=== PATIENT | female | born 1990 | race Caucasian/White ===

== ENCOUNTER 2018-02-10 02:19 | Emergency (ER) | payer BC ==
[2018-02-10] MEDS ORDERED: HYDROmorphone 2 MG/ML SDV IM ONE ×3 (02:37→03:21)
[2018-02-10] MEDS ORDERED: Ondansetron 4 MG/2 ML SDV IM ONE (02:37)
[2018-02-10 02:38] VITALS: BP 136/68
--- NOTE | 2018-02-10 02:45 | EDM.PDOC ---
ED HPI GENERAL MEDICAL PROBLEM - General Chief Complaint: Flank Pain Stated Complaint: POSSIBLE KIDNEY STONE Time Seen by Provider: 02/10/18 02:25 Source of Information: Reports: Patient, Family, Old Records History Limitations: Reports: No Limitations - History of Present Illness INITIAL COMMENTS - FREE TEXT/NARRATIVE: Kena is a 32 week gestation patient who comes to [facility] ED with L flank pain since yesterday evening. Pain is colicky, associated with nausea and vomiting, and seems to be getting worse. She suspects a kidney stone, as she has had them in the past. An abdominal CT scan in 2013 detected nephrolithiasis involving both kidneys at that time. - Related Data Allergies Allergy/AdvReac Type Severity Reaction Status Date / Time No Known Allergies Allergy Verified 02/10/18 02:59 Home Meds: Home Meds Levothyroxine Sodium 0.5 tab PO DAILY 02/10/18 [History] Prenat Vit Comb.10/Iron/Fa/Dha [Vitafol-OB + DHA] 1 tab PO DAILY 02/10/18 [ History] Past Medical History Genitourinary History: Reports: Renal Calculus ED ROS GENERAL - Review of Systems Review Of Systems: ROS reveals no pertinent complaints other than HPI. ED EXAM, RENAL/ - Physical Exam Exam: See Below Exam Limited By: No Limitations General Appearance: Alert, WD/WN, Moderate Distress Head: Normocephalic Neck: Normal Inspection, Supple, Non-Tender, Full Range of Motion Respiratory/Chest: Lungs Clear, Normal Breath Sounds, Chest Non-Tender Cardiovascular: Normal Peripheral Pulses, Regular Rate, Rhythm, No Murmur GI/Abdominal: Normal Bowel Sounds, Soft, Non-Tender, No Distention, No Mass, Other (fundus at 33 cm and nontender) (Female) Exam: Deferred, Enlarged Uterus, Heart Tones (145) Back Exam: CVA Tenderness (L) Extremities: Normal Inspection Neurological: Alert, Oriented, CN II-XII Intact, No Motor/Sensory Deficits Psychiatric: Normal Affect, Normal Mood Skin Exam: Warm, Dry, Intact, Normal Color, No Rash Lymphatic: No Adenopathy Course - Vital Signs Text/Narrative:: The UA noted hematuria with 100 RBC per HPFI administered Dilaudid 2 mg IM x2 and Zofran 4 mg IM for pain managment in the ED. Patient was clinically improved at time of discharge. Last Recorded V/S: Last Vital Signs Temp 36.4 C 02/10/18 02:34 Pulse 88 02/10/18 02:34 Resp 18 02/10/18 02:34 BP 136/68 02/10/18 02:34 Pulse Ox 100 02/10/18 02:34 - Orders/Labs/Meds Labs: Laboratory Tests 02/10/18 Range/Units 02:30 Urine Color Yellow (YELLOW) Urine Appearance Cloudy (CLEAR) Urine pH 6.0 (5.0-6.5) Ur Specific [place] 1.020 (1.010-1.025) Urine Protein Negative (NEGATIVE) mg/dL Urine Glucose (UA) Normal (NEGATIVE) mg/dL Urine Ketones Negative (NEGATIVE) mg/dL Urine Occult Blood Large H (NEGATIVE) Urine Nitrite Negative (NEGATIVE) Urine Bilirubin Negative (NEGATIVE) Urine Urobilinogen Normal (NEGATIVE) mg/dL Ur Leukocyte Esterase Negative (NEGATIVE) Urine RBC >100 H (0) Urine WBC 0-5 (0) Ur Squamous Epith Cells Moderate H (NS,R,O) Urine Bacteria Few H (NS) Meds: Medications Discontinued Medications Generic Name Dose Route Start Last Admin Trade Name Freq PRN Reason Stop Dose Admin Hydromorphone HCl 2 mg 02/10/18 02:38 02/10/18 02:47 Dilaudid IM 02/10/18 02:39 2 mg ONETIME ONE Administration Hydromorphone HCl 2 mg 02/10/18 02:37 02/10/18 02:39 Dilaudid IM 02/10/18 02:38 Not Given ONETIME ONE Hydromorphone HCl 2 mg 02/10/18 03:21 02/10/18 03:27 Dilaudid IM 02/10/18 03:22 2 mg ONETIME ONE Administration Ondansetron HCl 4 mg 02/10/18 02:37 02/10/18 02:46 Zofran IM 02/10/18 02:38 4 mg ONETIME ONE Administration Departure - Departure Time of Disposition: 04:03 Disposition: Home, Self-Care 01 Condition: Fair Clinical Impression: Ureterolithiasis during in third trimester - Discharge Information *PRESCRIPTION DRUG MONITORING PROGRAM REVIEWED*: Not Applicable *COPY OF PRESCRIPTION DRUG MONITORING REPORT IN PATIENT VICTORINO: Not Applicable Referrals: Partha Pederson MD [Primary Care Provider] - Forms: ED Department Discharge - Problem List & Annotations (1) Ureterolithiasis during in third trimester SNOMED Code(s): 84718315, 15160242 Code(s): O99.89 - OTH DISEASES AND CONDITIONS COMPL PREG/CHLDBRTH; N20.1 - CALCULUS OF URETER Status: Acute Current Visit: Yes Annotation/Comment:: I suggested rest, hydration, and follow up with PCP later today if no results with suspected stone. - Problem List Review Problem List Initiated/Reviewed/Updated: Yes - Assessment/Plan Plan: Follow up with PCP later today if needed.
== END 2018-02-10 04:10 | disposition home or self-care (01) ==
LOC: FB.ED 02:19
DX: O99.89 Other specified diseases and conditions complicating pregnancy, childbirth and the puerperium (principal); N20.1 Calculus of ureter; Z3A.32 32 weeks gestation of pregnancy
CPT/HCPCS: 81001; 96372; 99283; J1170; J2405

== ENCOUNTER 2018-02-10 07:49 | Observation (INO) | payer BC ==
[2018-02-10] MEDS ORDERED: HYDROmorphone 2 MG/ML SDV IVPUSH ONE (08:26)
[2018-02-10] MEDS ORDERED: Ondansetron 4 MG/2 ML SDV IVPUSH ONE (08:28)
[2018-02-10] MEDS: Sodium Chloride 0.9% 1,000 ML IV SCH ×3 (08:50→18:05)
[2018-02-10] MEDS: Sodium Chloride 0.9% 10 ML Syringe FLUSH PRN (08:50)
[2018-02-10] MEDS ORDERED: fentaNYL 100 MCG/2 ML SDV IVPUSH ONE (09:47)
[2018-02-10] MEDS ORDERED: Magnesium Hydroxide 400 MG/5 ML Susp 30 ML Cup PO PRN (10:20)
[2018-02-10] MEDS ORDERED: Acetaminophen 325 MG Tab PO PRN (10:20)
[2018-02-10] MEDS ORDERED: DHA PO SCH (10:30)
[2018-02-10] MEDS ORDERED: IRON PO SCH (10:30)
[2018-02-10] MEDS ORDERED: PRENAT VIT COMB PO SCH (10:30)
[2018-02-10] MEDS ORDERED: [UNRECOGNIZED DRUG - OTHER] PO SCH (10:30)
[2018-02-10] MEDS: HYDROmorphone 2 MG/ML SDV IVPUSH PRN ×4 (11:10→20:45)
--- NOTE | 2018-02-10 11:48 | US ---
INDICATION: Left and right flank pain, 32 week gestation, 02/17 pain, heart at 120. RENAL ULTRASOUND, COMPLETE: Multiple ultrasonic images were obtained 2017. No comparison study was available, except for a CT scan dated 2012. Right kidney: 12.3 x 5.8 x 5.4 cm, right kidney appeared essentially normal, except for question of a calculus in the lower middle pole area, not well- visualized, and minimal degree of prominence of the right pyelocaliceal system. Left kidney: 12.5 x 6.5 x 6.2 cm, mild hydronephrosis, more prominent than on the right. Echogenic focus in the upper pole, measuring 6 x 4 x 4 mm, compatible with a calculus in a calyx. The left kidney was otherwise unremarkable. IMPRESSION: 1. Calculus upper pole left kidney is suggested, was present on a previous CT scan of 02/14/2013. 2. It is difficult to exclude a small calculus in the lower middle pole area of the right kidney. 3. Mild obstructive uropathy may be present at the left kidney, possibly minimally on the right also. The findings are associated with - correlate clinically. MTDD
--- NOTE | 2018-02-10 11:51 | US ---
INDICATION: Severe left-sided pain. OB ULTRASOUND, LIMITED: Multiple ultrasonic images revealed a single, longitudinally lying, cephalic presenting fetus with a normal amount of amniotic fluid. The placenta is posterofundal without evidence of previa, grade 1-2. No adnexal mass lesions or free fluid collections were identified. Maternal ovaries were not demonstrated. Regular heart rate was noted at 126 BPM. No evidence of placenta previa or abruption was identified. movement appeared normal. IMPRESSION: No evidence of abruption or previa. MTDD
[2018-02-10] MEDS ORDERED: diphenhydrAMINE 50 MG Cap PO PRN (12:12)
[2018-02-10] MEDS ORDERED: diphenhydrAMINE 50 MG Cap ONE (12:22)
[2018-02-10] MEDS: Prenatal Multivitamin with Calcium/Folic Acid/Fe Fumarate Cap PO SCH (12:30)
[2018-02-10] MEDS: cefTRIAXone 1,000 MG VIAL IVPUSH SCH (13:29)
--- NOTE | 2018-02-10 15:08 | US ---
INDICATION: Left lower quadrant pain, UTI. ULTRASOUND, BIOPHYSICAL PROFILE WITHOUT NST: 35 minutes ultrasonic surveillance were utilized in evaluating the biophysiology of the fetus with breathing movements, gross body movements, and tone evaluated, as well as qualitative amniotic fluid volume evaluated. The amount of amniotic fluid appears to be normal. Gross body movements were normal and were quite active. tone was good. The placenta is posterofundal without evidence of previa. Regular heart motion of 130 BPM was noted. breathing movements were less than ideal, ranging from 10-12 seconds, rather than the expected 30 seconds duration of at least 1 breathing episode. IMPRESSION: Biophysical profile score 6/8, due to relatively short breathing episodes - less than 30 seconds duration. MTDD
--- NOTE | 2018-02-10 16:59 | PCM.HP ---
H&P History of Present Illness - General Date of Service: 02/10/18 Admit Problem/Dx: Admission Diagnosis/Problem Admission Diagnosis/Problem Source of Information: Patient History Limitations: Reports: No Limitations - History of Present Illness Initial Comments - Free Text/Narative: 27-year-old female currently 32 weeks . She came in because of left flank pain, sudden onset, since last night. She was seen in the ED,and discharged home but symptoms got worse. She describes colicky pain, severe; sometimes radiating to the pelvic area.Associated with dark urination,and nausea and vomiting. She denies fever dysuria ,uterine contractions or vaginal bleeding. She has a history of kidney stones. 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 heart tones 152 Endocrine/Metabolic History: Reports: Hypothyroidism - Past Surgical History Female Surgical History: Reports: None Social & Family History - Family History Family Medical History: Noncontributory - Tobacco Use Smoking Status *Q: Never Smoker - Caffeine Use Caffeine Use: Reports: None - Recreational Drug Use Recreational Drug Use: No H&P Review of Systems - Review of Systems: Review Of Systems: ROS reveals no pertinent complaints other than HPI. Exam - Exam Exam: See Below - Vital Signs Vital Signs: Last Vital Signs Temp 98.6 F 02/10/18 11:15 Pulse 97 02/10/18 14:30 Resp 18 02/10/18 11:15 BP 123/70 02/10/18 11:15 Pulse Ox 98 02/10/18 11:15 Weight: 93.44 kg - Exam General: Alert, Oriented, 4 HEENT: PERRLA, Hearing Intact, Mucosa Moist & [place], Nares Patent, Normal Nasal Septum, Posterior Pharynx Clear, Conjunctiva Clear, EOMI, EACs Clear, TMs Clear Neck: Supple, Trachea Midline, 2 Lungs: Clear to Auscultation, Normal Respiratory Effort Cardiovascular: Regular Rate, Regular Rhythm GI/Abdominal Exam: Tender (left cva) (Female) Exam: Normal External Exam, Normal Speculum Exam, Normal Bimanual Exam Rectal (Female) Exam: Normal Exam, Normal Rectal Tone Back Exam: Normal Inspection, Full Range of Motion, NT Extremities: Normal Inspection, Normal Range of Motion, Non-Tender, No Pedal Edema, Normal Capillary Refill Skin: Warm, Dry, Intact Neurological: Cranial Nerves Intact, Reflexes Equal Bilateral Neuro Extensive - Mental Status: Alert, Oriented x3, Normal Mood/Affect, Normal Cognition Neuro Extensive - Motor, Sensory, Reflexes: CN II-XII Intact, Normal Gait, Normal Reflexes Psychiatric: Alert, Normal Affect, Normal Mood - Patient Data Lab Results Last 24 hrs: Laboratory Results - last 24 hr 02/10/18 02/10/18 02/10/18 Range/Units 08:24 08:24 10:35 WBC 16.1 H (4.5-12.0) X10-3/uL RBC 3.92 (3.23-5.20) x10(6)uL Hgb 11.5 (11.5-15.5) g/dL Hct 33.8 (30.0-51.3) % MCV 86.3 (80-96) fL MCH 29.3 (27.7-33.6) pg MCHC 34.0 (32.2-35.4) g/dL RDW 12.5 (11.5-15.5) % Plt Count 303 (125-369) X10(3)uL MPV 6.9 L (7.4-10.4) fL Add Manual Diff Yes Neutrophils % (Manual) 90 H (46-82) % Band Neutrophils % 1 (0-6) % Lymphocytes % (Manual) 5 L (13-37) % Monocytes % (Manual) 4 (4-12) % Sodium 138 (135-145) mmol/L Potassium 4.0 (3.5-5.3) mmol/L Chloride 103 (100-110) mmol/L Carbon Dioxide 23 (21-32) mmol/L BUN 13 (7-18) mg/dL Creatinine 0.7 (0.55-1.02) mg/dL Est Cr Clr Drug Dosing TNP Estimated GFR (MDRD) > 60 (>60) BUN/Creatinine Ratio 18.6 (9-20) Glucose 123 H (80-116) mg/dL Calcium 8.4 L (8.6-10.2) mg/dL Total Bilirubin 0.2 (0.1-1.3) mg/dL AST 15 (5-25) IU/L ALT 31 (12-36) U/L Alkaline Phosphatase 91 (56-112) IU/L Total Protein 7.1 (6.0-8.0) g/dL Albumin 2.6 L (3.5-5.2) g/dL Globulin 4.5 g/dL Albumin/Globulin Ratio 0.6 Urine Color Yellow (YELLOW) Urine Appearance Cloudy (CLEAR) Urine pH 6.0 (5.0-6.5) Ur Specific [place] 1.015 (1.010-1.025) Urine Protein Negative (NEGATIVE) mg/dL Urine Glucose (UA) >1000 H (NEGATIVE) mg/dL Urine Ketones 15 H (NEGATIVE) mg/dL Urine Occult Blood Large H (NEGATIVE) Urine Nitrite Negative (NEGATIVE) Urine Bilirubin Negative (NEGATIVE) Urine Urobilinogen Normal (NEGATIVE) mg/dL Ur Leukocyte Esterase Moderate H (NEGATIVE) Urine RBC >100 H (0) Urine WBC 20-30 H (0) Ur Squamous Epith Cells Moderate H (NS,R,O) Urine Bacteria Many H (NS) Urine Mucus Few H (NS) Result Diagrams: 02/10/18 08:24 02/10/18 08:24 - Problem List (1) Acute pyelonephritis in third trimester, antepartum SNOMED Code(s): 80587973, 825000334 ICD Code: O23.03 - INFECTIONS OF KIDNEY IN , THIRD TRIMESTER; N10 - ACUTE PYELONEPHRITIS Status: Acute Current Visit: Yes (2) Ureterolithiasis during in third trimester SNOMED Code(s): 54516450, 13882491 ICD Code: O99.89 - OTH DISEASES AND CONDITIONS COMPL PREG/CHLDBRTH; N20.1 - CALCULUS OF URETER Status: Acute Current Visit: No Problem List Initiated/Reviewed/Updated: Yes Orders Last 24hrs: Active Orders 24 hr Category Date Time Status Patient Status [ADT] Routine ADT 02/10/18 10:20 Active Antiembolic Devices [RC] .Routine Care 02/10/18 10:24 Active Intake and Output [RC] PRN Care 02/10/18 10:20 Active Notify Provider [RC] PRN Care 02/10/18 10:20 Active Up ad Margarita [RC] ASDIRECTED Care 02/10/18 10:20 Active VTE/DVT Education [RC] Click to Edit Care 02/10/18 10:24 Active Vital Signs [RC] PER UNIT ROUTINE Care 02/10/18 10:20 Active Regular Diet [DIET] Diet 02/10/18 Breakfast Active CULTURE URINE [RM] Routine Lab 02/10/18 10:35 Received Acetaminophen [Tylenol] Med 02/10/18 10:20 Active 650 mg PO Q4H PRN HYDROmorphone [Dilaudid] Med 02/10/18 10:36 Active 2 mg IVPUSH Q1H PRN Levothyroxine [Levothroid] Med 02/10/18 10:30 Active 68.5 mcg PO DAILY Magnesium Hydroxide [Milk of Magnesia] Med 02/10/18 10:20 Active 60 ml PO DAILY PRN Vit/FA/Fe Fumarate [-U] Med 02/10/18 10:30 Active 1 each PO DAILY Sodium Chloride 0.9% [Normal Saline] 1,000 ml Med 02/10/18 08:30 Active IV ASDIRECTED Sodium Chloride 0.9% [Saline Flush] Med 02/10/18 10:20 Active 10 ml FLUSH ASDIRECTED PRN cefTRIAXone [Rocephin] Med 02/10/18 13:00 Active 1,000 mg IVPUSH Q24H diphenhydrAMINE [Benadryl] Med 02/10/18 12:12 Active 50 mg PO Q6H PRN Antiembolic Hose [OM.PC] Urgent Oth 02/10/18 10:20 Ordered BPP [ Biophysical Profile] [WOMSER] Stat Oth 02/10/18 13:01 Ordered DVT/VTE Prophylaxis Reflex [OM.PC] Routine Oth 02/10/18 10:20 Ordered EFM External w TOCO [Electronic Heart Tones Ext w Oth 02/10/18 11:00 Ordered TOCO] [WOMSER] Routine Resuscitation Status Routine Resus Stat 02/10/18 10:20 Ordered Medication Orders Acetaminophen (Tylenol) 650 mg PO Q4H PRN PRN Reason: mild pain and fever Ceftriaxone Sodium (Rocephin) 1,000 mg IVPUSH Q24H [facility] Last Admin: 02/10/18 13:29 Dose: 1,000 mg Diphenhydramine HCl (Benadryl) 50 mg PO Q6H PRN PRN Reason: Itching Last Admin: 02/10/18 12:33 Dose: 50 mg Hydromorphone HCl (Dilaudid) 2 mg IVPUSH Q1H PRN PRN Reason: Abdominal Pain Last Admin: 02/10/18 13:30 Dose: 2 mg Admin: 02/10/18 11:10 Dose: 2 mg Sodium Chloride (Normal Saline) 1,000 mls @ 150 mls/hr IV ASDIRECTED [facility] Last Admin: 02/10/18 16:46 Dose: 400 mls/hr Infusion: 02/10/18 09:45 Dose: 150 mls/hr Admin: 02/10/18 08:50 Dose: 400 mls/hr Levothyroxine Sodium (Levothroid) 68.5 mcg PO DAILY [facility] Last Admin: 02/10/18 12:31 Dose: 68.5 mcg Magnesium Hydroxide (Milk Of Magnesia) 60 ml PO DAILY PRN PRN Reason: Constipation Multivit/Folic Acid/Iron (-U) 1 each PO DAILY [facility] Last Admin: 02/10/18 12:30 Dose: 1 each Sodium Chloride (Saline Flush) 10 ml FLUSH ASDIRECTED PRN PRN Reason: Keep Vein Open Last Admin: 02/10/18 08:50 Dose: 10 ml Assessment/Plan Comment:: Repeat UA tonight did show some white cells suggesting infection in the urine. Cultures have been placed. I've elected to treat Rocephin 1 g IV daily. The location of the stone if possibly NOT causing the pain, and I suspect more the pain to be more pyelonephritis,than stone. However;I plan to repeat an ultrasound morning to see if any kidney stone can be seen in the ureter or has moved. Should this happen and she'll need emergency referral urologist. For tonight I will continue with IV fluid replacement, and judicious narcotic pain control.
[2018-02-11] MEDS: Sodium Chloride 0.9% 1,000 ML IV SCH ×4 (00:30→18:51)
[2018-02-11] MEDS: HYDROmorphone 2 MG/ML SDV IVPUSH PRN ×7 (00:35→17:19)
[2018-02-11] MEDS ORDERED: Tamsulosin 0.4 MG Cap.ER PO SCH (09:00)
--- NOTE | 2018-02-11 09:11 | PCM.PN ---
- General Info Date of Service: 02/11/18 Subjective Update: Kena denies any contractions, however she does have some cramping and colicky abdominal pain that is controlled by Dilaudid. No fevers been reported nor urinary symptoms. No bleeding. Functional Status: Reports: Pain Controlled - Review of Systems Gastrointestinal: Reports: No Symptoms Musculoskeletal: Reports: No Symptoms - Patient Data Vitals - Most Recent: Last Vital Signs Temp 99.6 F 02/11/18 00:30 Pulse 121 H 02/11/18 00:30 Resp 16 02/11/18 00:30 BP 139/86 02/11/18 00:30 Pulse Ox 99 02/11/18 00:30 Weight - Most Recent: 93.44 kg I&O - Last 24 Hours: Intake & Output 02/10/18 02/11/18 02/11/18 22:59 06:59 14:59 Intake Total 2296 Output Total 460 Balance 1836 Lab Results Last 24 Hours: Laboratory Results - last 24 hr 02/10/18 02/10/18 02/10/18 Range/Units 08:24 08:24 10:35 Neutrophils % (Manual) 90 H (46-82) % Band Neutrophils % 1 (0-6) % Lymphocytes % (Manual) 5 L (13-37) % Monocytes % (Manual) 4 (4-12) % Sodium 138 (135-145) mmol/L Potassium 4.0 (3.5-5.3) mmol/L Chloride 103 (100-110) mmol/L Carbon Dioxide 23 (21-32) mmol/L BUN 13 (7-18) mg/dL Creatinine 0.7 (0.55-1.02) mg/dL Est Cr Clr Drug Dosing TNP Estimated GFR (MDRD) > 60 (>60) BUN/Creatinine Ratio 18.6 (9-20) Glucose 123 H (80-116) mg/dL Calcium 8.4 L (8.6-10.2) mg/dL Total Bilirubin 0.2 (0.1-1.3) mg/dL AST 15 (5-25) IU/L ALT 31 (12-36) U/L Alkaline Phosphatase 91 (56-112) IU/L Total Protein 7.1 (6.0-8.0) g/dL Albumin 2.6 L (3.5-5.2) g/dL Globulin 4.5 g/dL Albumin/Globulin Ratio 0.6 Urine Color Yellow (YELLOW) Urine Appearance Cloudy (CLEAR) Urine pH 6.0 (5.0-6.5) Ur Specific [place] 1.015 (1.010-1.025) Urine Protein Negative (NEGATIVE) mg/dL Urine Glucose (UA) >1000 H (NEGATIVE) mg/dL Urine Ketones 15 H (NEGATIVE) mg/dL Urine Occult Blood Large H (NEGATIVE) Urine Nitrite Negative (NEGATIVE) Urine Bilirubin Negative (NEGATIVE) Urine Urobilinogen Normal (NEGATIVE) mg/dL Ur Leukocyte Esterase Moderate H (NEGATIVE) Urine RBC >100 H (0) Urine WBC 20-30 H (0) Ur Squamous Epith Cells Moderate H (NS,R,O) Urine Bacteria Many H (NS) Urine Mucus Few H (NS) [place] Results Last 24 Hours: Microbiology 02/10/18 10:35 Urine Culture - Preliminary Urine, Voided MIXED POSITIVE AMRITA DAY 1 Med Orders - Current: Current Medications Acetaminophen (Tylenol) 650 mg PO Q4H PRN PRN Reason: mild pain and fever Last Admin: 02/10/18 19:09 Dose: 650 mg Ceftriaxone Sodium (Rocephin) 1,000 mg IVPUSH Q24H [facility] Last Admin: 02/10/18 13:29 Dose: 1,000 mg Diphenhydramine HCl (Benadryl) 50 mg PO Q6H PRN PRN Reason: Itching Last Admin: 02/10/18 12:33 Dose: 50 mg Hydromorphone HCl (Dilaudid) 2 mg IVPUSH Q1H PRN PRN Reason: Abdominal Pain Last Admin: 02/11/18 08:34 Dose: 2 mg Sodium Chloride (Normal Saline) 1,000 mls @ 150 mls/hr IV ASDIRECTED JOSE Last Admin: 02/11/18 06:58 Dose: 400 mls/hr Levothyroxine Sodium (Levothroid) 68.5 mcg PO DAILY [facility] Last Admin: 02/10/18 12:31 Dose: 68.5 mcg Magnesium Hydroxide (Milk Of Magnesia) 60 ml PO DAILY PRN PRN Reason: Constipation Multivit/Folic Acid/Iron (-U) 1 each PO DAILY [facility] Last Admin: 02/10/18 12:30 Dose: 1 each Sodium Chloride (Saline Flush) 10 ml FLUSH ASDIRECTED PRN PRN Reason: Keep Vein Open Last Admin: 02/10/18 08:50 Dose: 10 ml Tamsulosin HCl (Flomax) 0.4 mg PO PCBREAKFAST JOSE Discontinued Medications Diphenhydramine HCl (Benadryl) Confirm Administered Dose 50 mg .ROUTE .STK-MED ONE Stop: 02/10/18 12:23 Last Admin: 02/10/18 12:32 Dose: Not Given Fentanyl (Sublimaze) 100 mcg IVPUSH ONETIME ONE Stop: 02/10/18 09:48 Last Admin: 02/10/18 09:55 Dose: 100 mcg Hydromorphone HCl (Dilaudid) 1 mg IVPUSH ONETIME ONE Stop: 02/10/18 08:27 Last Admin: 02/10/18 09:00 Dose: 1 mg Ondansetron HCl (Zofran) 4 mg IVPUSH ONETIME ONE Stop: 02/10/18 08:29 Last Admin: 02/10/18 09:00 Dose: 4 mg - Exam Quality Assessment: Supplemental Oxygen General: Alert HEENT: Pupils Equal Neck: Supple Lungs: Clear to Auscultation Cardiovascular: Regular Rate GI/Abdominal Exam: Normal Bowel Sounds, Tender (CVA-left) Back Exam: Normal Inspection, CVA Tenderness (R), CVA Tenderness (L) - Problem List & Annotations (1) Acute pyelonephritis in third trimester, antepartum SNOMED Code(s): 82915388, 837637921 Code(s): O23.03 - INFECTIONS OF KIDNEY IN , THIRD TRIMESTER; N10 - ACUTE PYELONEPHRITIS Status: Acute Current Visit: Yes (2) Ureterolithiasis during in third trimester SNOMED Code(s): 85582372, 49970872 Code(s): O99.89 - OTH DISEASES AND CONDITIONS COMPL PREG/CHLDBRTH; N20.1 - CALCULUS OF URETER Status: Acute Current Visit: No - Problem List Review Problem List Initiated/Reviewed/Updated: Yes - My Orders Last 24 Hours: My Active Orders 02/10/18 11:00 EFM External w TOCO [Electronic Heart Tones Ext w TOCO] [WOMSER] Routine 02/10/18 12:12 diphenhydrAMINE [Benadryl] 50 mg PO Q6H PRN 02/10/18 13:00 cefTRIAXone [Rocephin] 1,000 mg IVPUSH Q24H 02/10/18 13:01 BPP [ Biophysical Profile] [WOMSER] Stat 02/11/18 06:27 Renal Comp [US] Routine 02/11/18 08:34 BASIC METABOLIC PANEL,BMP [CHEM] Stat CBC WITH AUTO DIFF [HEME] Stat GLYCOSYLATED HEMOGLOBIN,HGBA1C [CHEM] Routine UA W/MICROSCOPIC [URIN] Routine 02/11/18 08:35 TSH ULTRASENSITIVE [CHEM] Routine 02/11/18 09:00 Tamsulosin [Flomax] 0.4 mg PO PCBREAKFAST - Plan Plan:: I spoke with CARPENTER. Advise was to increase a fluid level, control pain appropriately, strain the urine, and serial CBC and UA. I did ultrasound this morning spoke with the performing computed tomography technician,which revealed no obstructive uropathy, and a Biophysical profile 6 out of 8 losing on respirations( thought to be due to Dilaudid). Lungs continue IV antibiotics and Flomax, and observe for any overt signs of infection which would prompt referral to urology.
[2018-02-11] MEDS: Prenatal Multivitamin with Calcium/Folic Acid/Fe Fumarate Cap PO SCH (10:00)
[2018-02-11] MEDS: cefTRIAXone 1,000 MG VIAL IVPUSH SCH (13:50)
[2018-02-11] MEDS: Sodium Chloride 0.9% 10 ML Syringe FLUSH PRN (14:11)
--- NOTE | 2018-02-11 20:52 | DISCH ---
DISCHARGE DATE: 02/11/2018 REASON FOR ADMISSION: Left flank pain in . DISCHARGE DIAGNOSES: 1. Left flank pain, possibly due to a kidney stone or acute pyelonephritis. 2. at 32 weeks. BRIEF HISTORY: This is a 27-year-old female, who came in with left flank, pain, sudden onset and severe. HOSPITAL COURSE: She has been treated with IV fluids, Flomax, and narcotic pain control, but the pain is persistent. She has had no fever, but her white cell count has been between 14,000 and 16,000. DISPOSITION: After multiple discussions, it was elected that I send her to [place] to have a Urology consultation. She will be transferred by ambulance. TIME SPENT: I spent more than 35 minutes in arranging the transfer of the patient. /[id number] NORBERT/ASHLEY
[2018-02-12 02:53] VITALS: BP 130/68
--- NOTE | 2018-02-12 08:33 | US ---
INDICATION: Kidney stone, question obstruction. RENAL ULTRASOUND, COMPLETE: Multiple ultrasonic images were obtained 2017 and compared with 02/10/2018. The right kidney measured 12.6 x 6 x 6.8 cm, compared with the previous study, 12.3 x 5.8 x 6.4 cm. The left kidney measured 12.3 x 7 x 6.8 cm, compared with yesterdays images, 12.5 x 6.5 x 6.4 cm. No gross interval change suggested in size for the kidneys. No calculus is demonstrated on the right at this time; however, there is pyelocaliectasis on the right at this time, which is a significant increase in size of the pyelocaliceal system, compared with the previous study. The etiology, of course, is indeterminate and could be due to . A definite calculus not being seen in the kidney does not exclude ureteral calculus with obstructive uropathy, however. Degree of hydronephrosis on the left also appears to be slightly increased. The calculus seen on the previous study on the left in the upper pole is still suggested on the current study. IMPRESSION: Increase in degree of apparent obstructive uropathy, which may be on the basis of . Examination of the patient by ultrasound in the upright projection may be helpful for further evaluation of possible obstructive uropathy. CLAUDINED
== END 2018-02-11 22:10 ==
LOC: FB.ED 07:49 → FB.OB 10:25
PROVIDERS: ADMIT Family Medicine; ATTEND Family Medicine
DX: O23.03 Infections of kidney in pregnancy, third trimester (principal); N10 Acute pyelonephritis; O99.89 Other specified diseases and conditions complicating pregnancy, childbirth and the puerperium; N13.2 Hydronephrosis with renal and ureteral calculous obstruction; O99.283 Endocrine, nutritional and metabolic diseases complicating pregnancy, third trimester; E03.9 Hypothyroidism, unspecified; Z3A.32 32 weeks gestation of pregnancy; Z79.899 Other long term (current) drug therapy
CPT/HCPCS: 36415; 76770; 76815; 76819; 80048; 80053; 81001; 83036; 84443; 85025; 87086; 96361; 96374; 96375; 96376; 99285; A9270-GY; G0378; J0696; J1170; J2405; J3010; J7030; J7050

== ENCOUNTER 2021-10-21 06:21 | Day surgery (SDC) | payer OTHER ==
[~2021-10-21 06:21] MED LIST: Sodium Chloride 0.9% 10 ML Syringe FLUSH PRN
[2021-10-21] MEDS ORDERED: Midazolam 1 MG/ML 2 ML SDV IV ONE (06:22)
[2021-10-21] MEDS ORDERED: Propofol 200 MG/20 ML SDV IV ONE (06:22)
[2021-10-21] MEDS: Lactated Ringers 1,000 ML IV SCH ×2 (06:58→08:35)
[2021-10-21] MEDS ORDERED: Ondansetron 4 MG/2 ML SDV IVPUSH ONE (08:24)
[2021-10-21 10:08] VITALS: BP 137/79; PULSE 62
== END 2021-10-21 09:28 | disposition home or self-care (01) ==
LOC: FB.SDS 06:21
PROVIDERS: ATTEND Surgery
DX: K64.1 Second degree hemorrhoids (principal); K64.4 Residual hemorrhoidal skin tags; Z79.899 Other long term (current) drug therapy; Z98.890 Other specified postprocedural states
CPT/HCPCS: 00811; 00902; 45378; 46221; 81025; J2250; J2405; J2704; J7120